=== PATIENT | female | born 1950 | race Two or more races ===

== ENCOUNTER 2016-04-21 10:21 | Emergency (ER) | payer MEDICARE, MEDICAID ==
[~2016-04-21] VITALS: Ht 175.3 cm; Wt 99.8 kg
[2016-04-21] MEDS ORDERED: ONDANSETRON HCL/PF 4 MG/2 ML VIAL ONE (10:49)
[2016-04-21] MEDS ORDERED: IV NS 0.9% 1,000 ML ONE (10:49)
[2016-04-21] MEDS ORDERED: IV SET PRIMARY PUMP SET 1 EA INFUS.SET MC ONE (10:49)
[2016-04-21 10:52] LABS: BASOPHILS % (AUTO) 0.5 % (0.0-2.0); DIFF TOTAL % 100 %; EOSINOPHILS % (AUTO) 0.1 % (0.0-6.0); HEMATOCRIT 45 % (33-45); HEMOGLOBIN 14.4 g/dL (11.5-14.8); LYMPHOCYTES # (AUTO) 0.8 /CMM (0.8-4.8); LYMPHOCYTES % (AUTO) 11.9 % (20.0-44.0); MEAN CORPUSCULAR HEMOGLOBIN 30 PG (26.0-33.0); MEAN CORPUSCULAR HGB CONC 32 g/dl (31.0-36.0); MEAN CORPUSCULAR VOLUME 94 fL (82-100); MONOCYTES # (AUTO) 0.4 /CMM (0.1-1.30); MONOCYTES % (AUTO) 6.1 % (2.0-12.0); NEUTROPHILS # (AUTO) 5.5 /CMM (1.8-8.9); NEUTROPHILS % (AUTO) 81.4 % (43.0-81.0); PLATELET COUNT (AUTO) 207 /CMM (150-450); RED BLOOD CELL COUNT(AUTO) 4.76 MIL/uL (4.0-5.2); WHITE BLOOD COUNT (AUTO) 6.7 K/uL (4.3-11.0)
[2016-04-21] MEDS ORDERED: MELO-264 PO (10:52)
[2016-04-21] MEDS ORDERED: ENAL10TA PO (10:52)
[2016-04-21] MEDS ORDERED: ATOR40TA PO (10:52)
[2016-04-21] MEDS ORDERED: ASPI81TA2 PO (10:52)
[2016-04-21] MEDS ORDERED: IV NS 0.9% 1,000 ML BAG IV ONE (11:00)
[2016-04-21] MEDS ORDERED: ONDANSETRON HCL/PF 4 MG/2 ML VIAL IVP ONE (11:00)
[2016-04-21 11:03] LABS: ANION GAP 13 (5-14); CALCIUM, SERUM 8.6 mg/dL (8.5-10.1); CARBON DIOXIDE 28 mmol/L (21-32); CHLORIDE 102 mmol/L (98-107); CREATININE 1.3 mg/dL (0.6-1.3); GFR 41 mL/min (>60); GLUCOSE 122 mg/dL (74-106); POTASSIUM 3.8 mmol/L (3.5-5.1); SODIUM SERUM 139 mmol/L (136-145); UREA NITROGEN, BLOOD 23 mg/dL (7-18)
[2016-04-21 11:06] LABS: INR 1.02 (0.87-1.13); PROTHROMBIN TIME 10.7 SECS (9.5-12.7)
[2016-04-21 11:11] LABS: TROPONIN I < 0.017 ng/mL (0.00-0.056)
[2016-04-21 11:15] LABS: ALANINE AMINOTRANSFERASE 33 U/L (12-78); ALBUMIN 3.7 g/dL (3.4-5.0); ASPARTATE AMINOTRANSFERASE 44 U/L (15-37); BILIRUBIN,DIRECT 0.1 mg/dL (0.0-0.2); BILIRUBIN,TOTAL 0.5 mg/dL (0.2-1.0); INDIRECT BILIRUBIN 0.4 mg/dL (0.0-1.1); TOTAL PROTEIN, SERUM 7.5 g/dL (6.4-8.2)
[2016-04-21 12:05] VITALS: BP 118/78
== END 2016-04-21 12:20 | disposition home or self-care (01) ==
LOC: ER 10:23
DX: B34.9 Viral infection, unspecified (principal); E86.0 Dehydration; I95.9 Hypotension, unspecified; I10 Essential (primary) hypertension; E78.5 Hyperlipidemia, unspecified
CPT/HCPCS: 36415; 80048; 80076; 84484; 85025; 85730; 87804; 93005; 96361; 96374; 99285; A4606; J2405; J7030; 87400; Z7610

== ENCOUNTER 2022-06-14 18:27 | Inpatient (IN) | payer MEDICARE, OTHER ==
[~2022-06-14] VITALS: Ht 170.2 cm; Wt 91.2 kg
[~2022-06-14 18:27] MED LIST: ASPI-1169 PO; ATOR40TA PO; ENAL10TA39 PO; MELO-107 PO
[2022-06-14] MEDS ORDERED: ACETAMINOPHEN ES 500 MG TABLET ONE (18:53)
[2022-06-14] MEDS ORDERED: ACETAMINOPHEN ES 500 MG TABLET PO ONE (19:00)
--- NOTE | 2022-06-14 19:23 | NUR ---
PT ARRIVED FEBRIL ON 6L NC O2SAT 96% N/V X2 DAYS. WEEK FEELING GENERALIZED PAIN. NKA UKRANIAN SPEAKING.
--- NOTE | 2022-06-14 19:24 | NUR ---
FLU AND COVID SWABS TAKEN AND SENT TO LAB.
[2022-06-14 19:43] LABS: ALANINE AMINOTRANSFERASE 113 U/L (12-78); ALBUMIN 3.3 g/dL (3.4-5.0); ALKALINE PHOSPHATASE 107 U/L (46-116); ASPARTATE AMINOTRANSFERASE 121 U/L (15-37); BILIRUBIN,TOTAL 1.7 mg/dL (0.2-1.0); CALCIUM, SERUM 8.6 mg/dL (8.5-10.1); CARBON DIOXIDE 27 mmol/L (21-32); CHLORIDE 101 mmol/L (98-107); CREATININE 1.6 mg/dL (0.6-1.3); GLUCOSE 146 mg/dL (74-106); SODIUM SERUM 139 mmol/L (136-145); TOTAL PROTEIN, SERUM 7.1 g/dL (6.4-8.2); UREA NITROGEN, BLOOD 33 mg/dL (7-18)
[2022-06-14 19:55] LABS: POTASSIUM 2.8 mmol/L (3.5-5.1)
--- NOTE | 2022-06-14 20:26 | NUR ---
DAUGHTER [phone]
[2022-06-14] MEDS ORDERED: CEFTRIAXONE 1GM BAG (ER ONLY) 1 GM/50 ML PIGGYBACK IV ONE (21:00)
[2022-06-14] MEDS ORDERED: AZITHROMYCIN 500 MG in IV D5W 250 ML IV ONE (21:00)
[2022-06-14] MEDS ORDERED: IV NS 0.9% 1,000 ML IV ONE (21:00)
[2022-06-14] MEDS ORDERED: KETOROLAC TROMETHAMINE INJ 30 MG/ML VIAL IV ONE (21:00)
[2022-06-14] MEDS ORDERED: CEFTRIAXONE 1GM BAG (ER ONLY) 50 ML IV ONE (21:34)
[2022-06-14] MEDS ORDERED: AZITHROMYCIN 500 MG VIAL ONE (21:34)
[2022-06-14] MEDS ORDERED: POTASSIUM CHLORIDE 20 MEQ TAB.PRT.SR PO ONE ×2 (22:13→22:30)
[2022-06-14] MEDS ORDERED: POTASSIUM CL. PREMIX PERIPHER. 200 ML ONE (22:13)
[2022-06-14 22:22] LABS: BASOPHILS % (AUTO) 0.1 % (0.0-2.0); EOSINOPHILS % (AUTO) 0.2 % (0.0-6.0); HEMATOCRIT 41 % (33-45); HEMOGLOBIN 13.6 g/dL (11.5-14.8); LYMPHOCYTES # (AUTO) 0.2 K/uL (0.8-4.8); LYMPHOCYTES % (AUTO) 4.3 % (20.0-44.0); MEAN CORPUSCULAR HGB CONC 33 g/dl (31.0-36.0); MEAN CORPUSCULAR VOLUME 95 fL (82-100); MONOCYTES # (AUTO) 0.1 K/uL (0.1-1.30); MONOCYTES % (AUTO) 1.5 % (2.0-12.0); NEUTROPHILS # (AUTO) 5.2 K/uL (1.8-8.9); NEUTROPHILS % (AUTO) 93.9 % (43.0-81.0); PLATELET COUNT (AUTO) 178 K/uL (150-450); RED BLOOD CELL COUNT(AUTO) 4.33 MIL/uL (4.0-5.2); WHITE BLOOD COUNT (AUTO) 5.5 K/uL (4.3-11.0)
--- NOTE | 2022-06-14 22:27 | NUR ---
EPIC PANEL PAGED
--- NOTE | 2022-06-14 22:29 | NUR ---
ROOM 117-1
--- NOTE | 2022-06-14 22:35 | NUR ---
EPIC PANEL PAGED
[2022-06-14] MEDS ORDERED: POTASSIUM CHLORIDE 20 MEQ TAB.PRT.SR PO PRN (23:00)
[2022-06-14] MEDS ORDERED: ALBUTEROL FS 2.5 MG/0.5 ML VIAL.NEB NEB PRN (23:00)
--- NOTE | 2022-06-14 23:02 | NUR ---
hand off report given to richelle cano
--- NOTE | 2022-06-14 23:10 | NUR ---
RECEIVED REPORT FROM NURSE GIANA.
[2022-06-14] MEDS ORDERED: CEFEPIME 2 GM in IV D5W 100 ML IV ONE (23:30)
[2022-06-15] VITALS (7 sets, daily range): BP systolic 91–125; BP diastolic 45–98
[2022-06-15] MEDS ORDERED: IPRATROPIUM/ALBUTEROL INHALER IH SCH
--- NOTE | 2022-06-15 | NUR ---
ADMISSION NOTES RECEIVED PT FROM ED @ 1624. PT TRANSFERRED FROM [facility] TO [facility]. A/O X 4, UKRANIAN SPEAKING BUT CAN UNDERSTAND AND SPEAK SIMPLE MAORI. ORIENTED TO STAFF AND UNIT. PT ON O2 INHALATION VIA NASAL CANNULA @ 6LPM, 02 SAT. 97%, TOLERATING WELL, BREATHING EVEN AND UNLABORED @ THIS TIME. PT IV ACCESS PRESENT ON RIGHT AC #18G, PATENT, INTACT AND FLUSHES WELL WITH NO S&SX OF INFILTRATION @SITE NOTED. PT IS CONNECTED TO TELE MONITOR WITH CURRENT READING OF SINUS RHYTHM. SKIN IS WARM, DRY AND INTACT. PT BELONGINGS IS ACCOUNTED FOR FILED ON PT CHART. ALL NEEDS ATTENDED. SAFETY MEASURES INITIATED. BED PLACED ON ITS LOWEST AND LOCKED POSITION. SIDE RAILS UP X 2 . BEDSIDE TABLE AND CALL LIGHT IS EASY REACH. BED ALARM IS ON. WILL CONTINUE TO MONITOR PT ACCORDINGLY
[2022-06-15 00:06] LABS: CALCIUM, SERUM 8.1 mg/dL (8.5-10.1); CARBON DIOXIDE 25 mmol/L (21-32); CHLORIDE 105 mmol/L (98-107); CREATININE 1.8 mg/dL (0.6-1.3); GLUCOSE 124 mg/dL (74-106); SODIUM SERUM 141 mmol/L (136-145); UREA NITROGEN, BLOOD 34 mg/dL (7-18)
--- NOTE | 2022-06-15 00:10 | NUR ---
CALLED DAUGHTER, RUTH ANN FOR PT INFORMATION. RUTH ANN WAS ABLE TO PROVIDE INFORMATION ABOUT THE PT. SHE STATED THAT SHE WILL CALL AGAIN IN THE MORNING TO FOLLOW ON THE PT.
[2022-06-15 00:12] LABS: ALANINE AMINOTRANSFERASE 100 U/L (12-78); ALBUMIN 2.9 g/dL (3.4-5.0); ALKALINE PHOSPHATASE 108 U/L (46-116); ASPARTATE AMINOTRANSFERASE 97 U/L (15-37); BILIRUBIN,TOTAL 1.6 mg/dL (0.2-1.0); POTASSIUM 2.7 mmol/L (3.5-5.1); TOTAL PROTEIN, SERUM 6.3 g/dL (6.4-8.2)
[2022-06-15] MEDS: POTASSIUM CL. PREMIX PERIPHER. 50 ML IV SCH ×4 (00:12→02:47)
[2022-06-15] MEDS ORDERED: MORPHINE SULFATE INJ 2 MG/ML DISP.SYRIN IV PRN (00:30)
[2022-06-15] MEDS ORDERED: IV NS 0.9% 500 ML IV ONE (00:30)
[2022-06-15] MEDS ORDERED: CEFEPIME 1 GM VIAL ONE (00:39)
[2022-06-15] MEDS: ONDANSETRON HCL/PF 4 MG/2 ML VIAL IVP PRN ×2 (01:25→07:53)
[2022-06-15] MEDS: ALBUTEROL FS 2.5 MG/0.5 ML VIAL.NEB NEB SCH ×4 (01:30→20:01)
[2022-06-15] MEDS: IPRATROPIUM NEB FS 0.5 MG/2.5 ML AMPUL.NEB IH SCH ×4 (01:30→20:01)
[2022-06-15] MEDS: ENOXAPARIN SODIUM 30 MG/0.3 ML DISP.SYRIN SQ SCH ×2 (01:53→21:49)
--- NOTE | 2022-06-15 02:58 | NUR ---
JEFF NOTES Patient received earlier with 4 bags KCL ordered but Giana handed 3 bags only to JEFF Tomlinson; called ER and spoke to OCHOA Thomson and confirmed 1 bag of KCL was administered by GIANA. Primary JEFF Tomlinson notified Addendum: 06/15/22 at 0304 by CADEN SKINNER RN RT Wick made aware of breathing treatment order
--- NOTE | 2022-06-15 03:36 | NUR ---
Q6 NEB TX NOT GIVEN. ORIGINAL ORDER WAS FOR COMBIVENT AT 0000, BUT WAS DISCONTINUED. Q6 NEB WAS ORDERED, BUT RT WASNT NOTIFIED OF NEW ORDER. ASSESSED PT, ASLEEP AND COMFORTABLE ON 5LNC. NO RESP DISTRESS NOTED. WILL ENDORSE NEW TX PLAN TO DAY SHIFT RT. RN AWARE.
--- NOTE | 2022-06-15 06:48 | NUR ---
RN CLOSING NOTES PT IS ASLEEP & RESTING COMFORTABLY IN BED, RESPONSIVE AND FOLLOWS VERBAL COMMAND. PT ON O2 INHALATION VIA NASAL CANNULA @ 6LPM, 02 SAT. 99%, WITH NO RESPIRATORY DISTRESS @ THIS TIME. PT IV ACCESS PRESENT ON RIGHT AC #18G RUNNING 0.9% NS @20MLS/HR, PATENT, INTACT AND FLUSHES WELL WITH NO S & SX OF INFILTRATION @SITE NOTED. PT IS CONNECTED TO TELE MONITOR WITH CURRENT READING OF SINUS RHYTHM. ADMINISTERED MEDICATIONS ACCORDINGLY PER MD'S ORDER. SAFETY MEASURES INITIATED. BED PLACED ON ITS LOWEST AND LOCKED POSITION. SIDE RAILS UP X 2 . BEDISDE TABLE AND CALL LIGHT IS EASY REACH. BED ALARM IS ON. WILL ENDORSE TO THE NEXT SHIFT FOR CONTINUITY OF CARE.
--- NOTE | 2022-06-15 07:10 | NUR ---
RN CLOSING NOTES RECEIVED PT IN BED IS ASLEEP & RESTING COMFORTABLY , RESPONSIVE AND FOLLOWS VERBAL COMMAND. PT ON O2 INHALATION VIA NASAL CANNULA @ 6LPM, 02 SAT. 99%, WITH NO RESPIRATORY DISTRESS @ THIS TIME. PT IV ACCESS PRESENT ON RIGHT AC #18G RUNNING 0.9% NS @20MLS/HR, PATENT, INTACT AND FLUSHES WELL WITH NO S & SX OF INFILTRATION @SITE NOTED. PT IS CONNECTED TO TELE MONITOR WITH CURRENT READING OF SINUS RHYTHM. SAFETY MEASURES INITIATED. BED PLACED ON ITS LOWEST AND LOCKED POSITION. SIDE RAILS UP X 2 . BEDISDE TABLE AND CALL LIGHT WITHIN REACH. BED ALARM IS ON. WILL CONTINUE TO MONITOR Addendum: 06/15/22 at 1942 by JULIA ZAMORA RN AT 0710 RN OPENING NOTED
[2022-06-15 07:25] LABS: ALANINE AMINOTRANSFERASE 111 U/L (12-78); ALBUMIN 2.6 g/dL (3.4-5.0); ALKALINE PHOSPHATASE 99 U/L (46-116); ASPARTATE AMINOTRANSFERASE 92 U/L (15-37); BILIRUBIN,TOTAL 0.7 mg/dL (0.2-1.0); CALCIUM, SERUM 7.9 mg/dL (8.5-10.1); CARBON DIOXIDE 25 mmol/L (21-32); CHLORIDE 106 mmol/L (98-107); GLUCOSE 147 mg/dL (74-106); MAGNESIUM 1.8 mg/dL (1.8-2.4); PHOSPHORUS 4.9 mg/dL (2.5-4.9); POTASSIUM 4.6 mmol/L (3.5-5.1); SODIUM SERUM 141 mmol/L (136-145); TOTAL PROTEIN, SERUM 6.4 g/dL (6.4-8.2); UREA NITROGEN, BLOOD 39 mg/dL (7-18)
[2022-06-15] MEDS: ATORVASTATIN 40 MG TABLET PO SCH (08:13)
[2022-06-15] MEDS: ENALAPRIL MALEATE (10 MG) 10 MG TABLET PO SCH ×2 (08:14→21:47)
[2022-06-15] MEDS: ASPIRIN 81 MG TAB.CHEW PO SCH (08:14)
--- NOTE | 2022-06-15 09:00 | NUR ---
RN NOTES: NOTIFIED DR OLMSTEAD BP93/51 HELD VASOTEC , NO IV FLUID WITH NO NEW ORDER
[2022-06-15] MEDS ORDERED: HYDR25TA4 PO (10:26)
[2022-06-15] MEDS ORDERED: PANT40TA49 PO (10:26)
[2022-06-15] MEDS ORDERED: ESCI10TA PO (10:26)
[2022-06-15] MEDS ORDERED: LEVO112T7 PO (10:26)
--- NOTE | 2022-06-15 19:40 | NUR ---
RN OPENING NOTE RECEIVED PATIENT IN BED; AWAKE, ALERT AND ORIENTED X 4. GREEK SPEAKING. VERBALLY RESPONSIVE. ON O2 INHALATION @ 6 LPM VIA NASAL CANNULA; TOLERATING WELL. IN NO ACUTE DISTRESS. DENIES ANY PAIN OR DISCOMFORT AT THIS TIME. ON TELE MONITORING WHICH READS SR HR-82 BPM. WITH IV ACCESS ON RIGHT AC 18g AND LEFT AC 22g; BOTH ARE PATENT, INTACT AND SALINE LOCKED. ABLE TO VERBALIZE NEEDS. SAFETY PRECAUTIONS IMPLEMENTED: CALL LIGHT AND TABLE WITHIN REACH, SIDE RAILS UP X 3, BED IN LOWEST LOCKED POSITION. WILL CONTINUE PLAN OF CARE.
--- NOTE | 2022-06-15 19:42 | NUR ---
ASSISTANT PROFESSOR OF PHILOSOPHY CLOSING NOTES PT IS AWAKE COMFORTABLE IN BED, RESPONSIVE AND FOLLOWS VERBAL COMMAND. PT ON O2 INHALATION VIA NASAL CANNULA @ 6LPM, 02 SAT. 99%, WITH NO RESPIRATORY DISTRESS @ THIS TIME. PT IV ACCESS PRESENT ON RIGHT AC #18G, PATENT, INTACT AND FLUSHES WELL WITH NO S & SX OF INFILTRATION @SITE NOTED. PT IS CONNECTED TO TELE MONITOR WITH CURRENT READING OF SINUS RHYTHM. ADMINISTERED MEDICATIONS ACCORDINGLY PER MD'S ORDER. SAFETY MEASURES INITIATED. BED PLACED ON ITS LOWEST AND LOCKED POSITION. SIDE RAILS UP X 2 . BEDSIDE TABLE AND CALL LIGHT IS EASY REACH. BED ALARM IS ON. ENDORSE TO THE DOUBLE END SEWER RN FOR CONTINUITY OF CARE.
[2022-06-15] MEDS: ACETAMINOPHEN 325 MG TABLET PO PRN (21:28)
--- NOTE | 2022-06-15 21:28 | NUR ---
RN NOTE PT COMPLAINED OF HEADACHE AND REQUESTED MEDICATION. TYLENOL 650 MG GIVEN PO ORDERED; TOLERATED WELL. KEPT COMFORTABLE AND INSTRUCTIONAL SERVICES LIBRARIAN BED. WILL CONTINUE TO MONITOR.
[2022-06-16] VITALS (7 sets, daily range): BP systolic 101–125; BP diastolic 50–98
[2022-06-16] MEDS: CEFEPIME 2 GM in IV D5W 100 ML IV SCH (01:10)
[2022-06-16] MEDS: IPRATROPIUM NEB FS 0.5 MG/2.5 ML AMPUL.NEB IH SCH ×4 (01:16→19:58)
[2022-06-16] MEDS: ALBUTEROL FS 2.5 MG/0.5 ML VIAL.NEB NEB SCH ×4 (01:16→19:58)
--- NOTE | 2022-06-16 07:00 | NUR ---
RN CLOSING NOTE PATIENT IN BED; AWAKE, A/O X 4. GREEK SPEAKING. VERBALLY RESPONSIVE. STILL ON O2 INHALATION @ 6 LPM VIA NASAL CANNULA; WELL TOLERATED. IN NO ACUTE DISTRESS. DENIES ANY PAIN OR DISCOMFORT AT THIS TIME. ON TELE MONITORING WHICH READS SR HR-82 BPM. WITH IV ACCESS ON RIGHT AC 18g AND LEFT AC 22g; BOTH ARE PATENT, INTACT AND SALINE LOCKED. ALL NEEDS ATTENDED. SAFETY PRECAUTIONS IN PLACE: CALL LIGHT AND TABLE WITHIN REACH, SIDE RAILS UP X 3, BED IN LOWEST LOCKED POSITION. ENDORSED TO MORNING SHIFT FOR SASHA.
--- NOTE | 2022-06-16 07:15 | NUR ---
RN OPENING NOTE RECEIVED PATIENT ON BED; AWAKE, ALERT AND ORIENTED X 4. VINCENTIAN SPEAKING. VERBALLY RESPONSIVE. ON O2 INHALATION @ 6 LPM VIA NASAL CANNULA; TOLERATING WELL. IN NO ACUTE DISTRESS. DENIES ANY PAIN OR DISCOMFORT AT THIS TIME. ON TELE MONITORING WHICH READS SR HR-82 BPM. WITH IV ACCESS ON RIGHT AC 18g AND LEFT AC 22g; PATENT, INTACT AND SALINE LOCKED. ABLE TO VERBALIZE NEEDS. SAFETY PRECAUTIONS IMPLEMENTED: CALL LIGHT AND TABLE WITHIN REACH, SIDE RAILS UP X 3, BED IN LOWEST LOCKED POSITION. WILL CONTINUE PLAN OF CARE.
[2022-06-16 07:23] LABS: ALANINE AMINOTRANSFERASE 95 U/L (12-78); ALBUMIN 2.6 g/dL (3.4-5.0); ALKALINE PHOSPHATASE 121 U/L (46-116); ASPARTATE AMINOTRANSFERASE 59 U/L (15-37); BILIRUBIN,TOTAL 0.5 mg/dL (0.2-1.0); CALCIUM, SERUM 8.3 mg/dL (8.5-10.1); CARBON DIOXIDE 26 mmol/L (21-32); CHLORIDE 106 mmol/L (98-107); CREATININE 1.4 mg/dL (0.6-1.3); GLUCOSE 100 mg/dL (74-106); MAGNESIUM 2.2 mg/dL (1.8-2.4); PHOSPHORUS 3.1 mg/dL (2.5-4.9); POTASSIUM 4.1 mmol/L (3.5-5.1); SODIUM SERUM 139 mmol/L (136-145); TOTAL PROTEIN, SERUM 6.6 g/dL (6.4-8.2); UREA NITROGEN, BLOOD 37 mg/dL (7-18)
[2022-06-16 07:43] LABS: BASOPHILS % (AUTO) 0.3 % (0.0-2.0); EOSINOPHILS % (AUTO) 0.2 % (0.0-6.0); HEMATOCRIT 38 % (33-45); HEMOGLOBIN 12.3 g/dL (11.5-14.8); LYMPHOCYTES # (AUTO) 0.5 K/uL (0.8-4.8); LYMPHOCYTES % (AUTO) 5.8 % (20.0-44.0); MEAN CORPUSCULAR HGB CONC 33 g/dl (31.0-36.0); MEAN CORPUSCULAR VOLUME 95 fL (82-100); MONOCYTES # (AUTO) 0.4 K/uL (0.1-1.30); MONOCYTES % (AUTO) 4.1 % (2.0-12.0); NEUTROPHILS # (AUTO) 8.3 K/uL (1.8-8.9); NEUTROPHILS % (AUTO) 89.6 % (43.0-81.0); PLATELET COUNT (AUTO) 149 K/uL (150-450); RED BLOOD CELL COUNT(AUTO) 3.93 MIL/uL (4.0-5.2); WHITE BLOOD COUNT (AUTO) 9.2 K/uL (4.3-11.0)
[2022-06-16] MEDS: ATORVASTATIN 40 MG TABLET PO SCH (08:45)
[2022-06-16] MEDS: ASPIRIN 81 MG TAB.CHEW PO SCH (08:45)
--- NOTE | 2022-06-16 08:49 | NUR ---
CRYSTAL FINISHER NOTES Pt has routine Vasotec 10mg due. BP is 102/66. Informed Dr. Wright with orders to hold medication at this time. Pt also complains of severe pain and would like strong pain medication. Dr. Wright notified with ok to give one dose of PRN Morphine.
[2022-06-16] MEDS: ENALAPRIL MALEATE (10 MG) 10 MG TABLET PO SCH ×2 (08:52→21:00)
[2022-06-16] MEDS: ACETAMINOPHEN 325 MG TABLET PO PRN (16:13)
--- NOTE | 2022-06-16 16:26 | NUR ---
BROOM MACHINE OPERATOR NOTES OPERATIONS AND INTELLIGENCE ASSISTANT reported that pts temperature is 102 degrees Fahrenheit. Tylenol 650mg given PO PRN and cooling measure applied. MD Dr. Wright and CN made aware. Will continue to monitor.
--- NOTE | 2022-06-16 16:28 | NUR ---
GUM MACHINE FILLER NOTES Dr. Wright gave new order for blood culture x2. Noted and carried out.
--- NOTE | 2022-06-16 16:45 | NUR ---
DRINK MIXER NOTES Pt desaturating and 02 saturation was 86%. Non rebreather mask put at 10L. Temperature is at 103 degrees Fahrenheit. Vital signs taken and BP 112/75. HR 77, blood sugar @ 101. Rapid Response called. MD called and left message.
[2022-06-16] MEDS ORDERED: VANCOMYCIN 1.25 GM in IV D5W 250 ML IV SCH (17:00)
--- NOTE | 2022-06-16 17:00 | NUR ---
ELECTRON BEAM OPERATOR NOTES Rapid response team at bedside and pt on Non rebreather at 10L, 02 saturation at 94%. Pt more responsive and open eyes when her name is called. made aware with new order for STAT ABG . PT vomited x1 and suctioned.
--- NOTE | 2022-06-16 17:05 | NUR ---
TEARER PRESS CLIPPING NOTES ABG results relayed to Dr. Gomez with orders to leave pt on non rebreather 15L. New order from for STAT EKG. Pt 02 saturation at 94%.
[2022-06-16] MEDS: LEVOFLOXACIN (250MG) 250 MG TABLET PO SCH (17:49)
--- NOTE | 2022-06-16 18:05 | NUR ---
RT Responded to rapid response. Pt found on 10LPM SM with sp02 of 90%. Placed pt on NRB 15 LPM. ABG done- no new orders per MD Peleg. Pt remains on 15 LPM NRB. Will continue to monitor
--- NOTE | 2022-06-16 18:34 | NUR ---
RN CLOSING NOTE PATIENT ON BED; AWAKE, VERBALLY RESPONSIVE, [place]IMB[place], SPEAKING. WITH 100% O2 VIA NON RE BREATHER MASK, O2 SAT 96%. WELL TOLERATED, ON TELE MONITORING WHICH READS SR HR-82 BPM WITH PACS. . WITH IV ACCESS ON RIGHT AC 18g AND LEFT AC 22g; BOTH ARE PATENT, INTACT AND SALINE LOCKED. ALL NEEDS ATTENDED. SAFETY PRECAUTIONS IN PLACE: KEPT CLEAN AND DRY AT ALL TIMES CALL LIGHT AND TABLE WITHIN REACH, SIDE RAILS UP X 3, BED IN LOWEST LOCKED POSITION. CURRENT TEMP 100.F AXILLARY. ENDORSED TO INCOMING SHIFT FOR CONTINUITY OF CARE. .
--- NOTE | 2022-06-16 18:57 | NUR ---
PT HAD A LARGE BM, CURRENT TEMP 98.9 VIA AXILLARY.
--- NOTE | 2022-06-16 19:30 | NUR ---
APPRAISER AUDITOR OPENING NOTE RECEIVED PATIENT ON BED; AWAKE, ALERT AND ORIENTED X 2. AUSTRALIAN SPEAKING. DAUGHTER AT BEDSIDE. ON O2 INHALATION @ 15 LPM VIA NRM; TOLERATING WELL. IN NO ACUTE DISTRESS. DENIES ANY PAIN OR DISCOMFORT AT THIS TIME. ON TELE MONITORING WHICH READS SR HR-82 BPM. WITH IV ACCESS ON RIGHT AC 18g NO IVF RUNNING AT THIS TIME; PATENT, INTACT AND SALINE LOCKED. ABLE TO VERBALIZE NEEDS. SAFETY PRECAUTIONS IMPLEMENTED: CALL LIGHT AND TABLE WITHIN REACH, SIDE RAILS UP X 3, BED IN LOWEST LOCKED POSITION. WILL CONTINUE TO MONITOR THROUGHOUT THE SHIFT.
[2022-06-16] MEDS: ENOXAPARIN SODIUM 30 MG/0.3 ML DISP.SYRIN SQ SCH (21:26)
[2022-06-17] VITALS: BP 105/61
[2022-06-17] MEDS: CEFEPIME 2 GM in IV D5W 100 ML IV SCH (01:14)
[2022-06-17] MEDS: ALBUTEROL FS 2.5 MG/0.5 ML VIAL.NEB NEB SCH ×4 (02:07→20:05)
[2022-06-17] MEDS: IPRATROPIUM NEB FS 0.5 MG/2.5 ML AMPUL.NEB IH SCH ×4 (02:07→20:05)
--- NOTE | 2022-06-17 02:10 | NUR ---
RT NOTE O2 TITRATED TO 12L SIMPLE MASK. RASHMI WELL. 96% SAT. RN AWARE.
[2022-06-17 04:00] VITALS: BP 101/59
--- NOTE | 2022-06-17 07:05 | NUR ---
GARDEN CONSULTANT CLOSING NOTE PATIENT REMAINS ON BED; AWAKE, ALERT AND ORIENTED X 3-4. CHADIAN SPEAKING. ON O2 INHALATION @ 1O LPM VIA SIMPLE MASK; TOLERATING WELL. IN NO ACUTE DISTRESS. DENIES ANY PAIN OR DISCOMFORT AT THIS TIME. ON TELE MONITORING WHICH READS SB-SR HR-50'S. WITH IV ACCESS ON RIGHT AC 18g NO IVF RUNNING AT THIS TIME; PATENT, INTACT AND SALINE LOCKED. ABLE TO VERBALIZE NEEDS. ALL DUE MEDS GIVEN, KEPT DRY AND CLEAN, SAFETY PRECAUTIONS IMPLEMENTED: CALL LIGHT AND TABLE WITHIN REACH, SIDE RAILS UP X 3, BED IN LOWEST LOCKED POSITION. WILL ENDORSE TO AM SHIFT NURSE FOR CONTINUITY OF CARE.
--- NOTE | 2022-06-17 07:14 | NUR ---
COIL WINDING SUPERVISOR NOTES Received pt awake in bed AOX3 Citizen Of [place] speaking. Pt is currently on 10L simple mask and tolerating it well with 02 saturation at 99%. IV access on RAC 18G SL patent and intact. HOB elevated to pts comfort. Siderails up at all times x2. Call light within reach. Will continue to monitor.
[2022-06-17 07:21] LABS: CALCIUM, SERUM 8.5 mg/dL (8.5-10.1); CREATININE 1.2 mg/dL (0.6-1.3); POTASSIUM 4.3 mmol/L (3.5-5.1)
[2022-06-17 08:00] VITALS: BP 109/76
--- NOTE | 2022-06-17 08:23 | NUR ---
BIOLOGICAL AIDE NOTES Lab called to relay critical lab value of 114.89 Procalcitonin. NURSE INTERN Ted made aware.
[2022-06-17 08:41] LABS: BILIRUBIN,URINE 1+ (NEGATIVE); COLOR,URINE DARK YELLOW (YELLOW); LEUKOCYTE ESTERASE ,URINE NEGATIVE (NEGATIVE); NITRITE, URINE NEGATIVE (NEGATIVE); PROTEIN,URINE 2+ mg/dl (NEGATIVE); UGLUCOSE NEGATIVE (NEGATIVE)
[2022-06-17] MEDS: ASPIRIN 81 MG TAB.CHEW PO SCH (08:42)
[2022-06-17] MEDS: ATORVASTATIN 40 MG TABLET PO SCH (08:42)
[2022-06-17] MEDS: ENALAPRIL MALEATE (10 MG) 10 MG TABLET PO SCH ×2 (09:00→20:59)
[2022-06-17 09:07] LABS: BACTERIA,URINE Moderate /HPF (None Seen); SQUAMOUS EPITHELIAL CELL,UR Many /HPF (None Seen)
[2022-06-17 12:00] VITALS: BP 107/69
[2022-06-17 16:00] VITALS: BP 115/67
[2022-06-17] MEDS: LEVOFLOXACIN (250MG) 250 MG TABLET PO SCH (16:08)
[2022-06-17] MEDS ORDERED: VANCOMYCIN 1 GM in IV D5W 250 ML IV SCH (17:00)
--- NOTE | 2022-06-17 18:24 | NUR ---
ENVIRONMENTAL SERVICES PROJECT MANAGER CLOSING NOTES All due meds and tx given as ordered. Pt tolerated everything well. All needs attended to. Pt is currently on 3L NC and tolerating it well. IV access on RAC 18G patent and intact. Call light within reach. Will continue current plan of care.
--- NOTE | 2022-06-17 19:35 | NUR ---
MACHINE OPERATORS OPENING NOTES RECEIVED PATIENT IN BED SLEEPING BUT EASILY AWAKEN WHEN CALLED BY NAME. A/O X2-3. ABLE TO MAKE NEEDS KNOWN. IV ACCESS ON RIGHT AC G#18 IV ACCESS NOTED TO BE PATENT AND INTACT SALINE LOCK. PATIENT ON NC 3LPM TOLERATING WELL, NO SOB, NOT IN DISTRESS. PATIENT ON RECREATION FACILITY MANAGER WITH SINUS RHYTHM 67BPM. PATIENT IS COMFORTABLE. NO COMPLAINS OF PAIN AT THE MOMENT. SAFETY MEASURE IN PLACED; BED LOCKED AND IN LOWEST POSITION, HOB ELEVATED, CALL LIGHT AND BED SIDE TABLE WITHIN PATIENTS REACH.
[2022-06-17 20:00] VITALS: BP 115/69
[2022-06-17] MEDS: ENOXAPARIN SODIUM 30 MG/0.3 ML DISP.SYRIN SQ SCH (21:01)
[2022-06-18] VITALS: BP 120/71
[2022-06-18] MEDS: CEFEPIME 2 GM in IV D5W 100 ML IV SCH ×2 (00:28→14:09)
[2022-06-18] MEDS: IPRATROPIUM NEB FS 0.5 MG/2.5 ML AMPUL.NEB IH SCH ×4 (01:52→19:48)
[2022-06-18] MEDS: ALBUTEROL FS 2.5 MG/0.5 ML VIAL.NEB NEB SCH ×4 (01:53→19:48)
[2022-06-18 04:00] VITALS: BP 123/70
--- NOTE | 2022-06-18 04:35 | NUR ---
RN NOTES LAB CALLED BLOOD CULTURE RESULT AEROBIC GRAM NEGATIVE RODS. METAL SHEET ROLLER OPERATOR DOCTOR LASHANDA IS INFORMED NO FURTHER ORDER AT THIS TIME.
--- NOTE | 2022-06-18 06:38 | NUR ---
COLLIERY CLERK CLOSING NOTES PATIENT IN BED SLEEPING BUT EASILY AWAKEN WHEN CALLED BY NAME. A/O X4. ABLE TO MAKE NEEDS KNOWN. IV ACCESS ON RIGHT AC G#18 IV ACCESS NOTED TO BE PATENT AND INTACT SALINE LOCK. PATIENT ON NC 3LPM TOLERATING WELL, NO SOB, NOT IN DISTRESS. PATIENT ON TIME CLERK WITH SINUS RHYTHM 67BPM. PATIENT IS COMFORTABLE. NO COMPLAINS OF PAIN AT THE MOMENT. ALL DUE MEDICATIONS ARE GIVEN. ALL NEEDS ARE MET. MADE SURE PATIENT IS COMFORTABLE CLEAN AND DRY. PATIENT IS CONNECTED TO A PUREWICK NOTED TO BE DRAINING WELL IN THE SUCTION MACHINE. SAFETY MEASURE IN PLACED; BED LOCKED AND IN LOWEST POSITION, HOB ELEVATED, CALL LIGHT AND BED SIDE TABLE WITHIN PATIENTS REACH. WILL ENDORSE TO NEXT SHIFT NURSE FOR CONTINUITY OF CARE.
--- NOTE | 2022-06-18 06:45 | NUR ---
Report communicate to on communicate to on coming nurse. IV site is patent, dry and no drainage or redness observed at the site. Patient is breathing just fine on room air. she is resting in bed now. will continue to monitor patient for safety.
[2022-06-18 08:32] LABS: CALCIUM, SERUM 8.9 mg/dL (8.5-10.1); CREATININE 1.1 mg/dL (0.6-1.3); POTASSIUM 4.2 mmol/L (3.5-5.1)
[2022-06-18] MEDS: ATORVASTATIN 40 MG TABLET PO SCH (10:24)
[2022-06-18] MEDS: ENALAPRIL MALEATE (10 MG) 10 MG TABLET PO SCH ×2 (10:25→22:02)
[2022-06-18] MEDS: ASPIRIN 81 MG TAB.CHEW PO SCH (10:25)
[2022-06-18] MEDS ORDERED: LEVOTHYROXINE SODIUM 50 MCG TABLET PO SCH (10:30)
[2022-06-18 14:16] VITALS: BP 130/70
[2022-06-18 16:00] VITALS: BP 130/69
[2022-06-18] MEDS: LEVOFLOXACIN (250MG) 250 MG TABLET PO SCH (18:09)
--- NOTE | 2022-06-18 19:30 | NUR ---
MASTER MOTORCYCLE TECHNICIAN OPENING NOTES RECEIVED PT IN BED RESTING, EASILY AROUSABLE. A/O X4. ABLE TO MAKE NEEDS KNOWN. ON O2 3L VIA NC WITH NO S/S OF SOB OR DISTRESS. ON TELE MONITOR READING SR WITH PAC'S, HR 70. IV ACCESS RAC #18G, PATENT, INTACT, SL. NO COMPLAINS OF PAIN AT THE MOMENT. PATIENT IS CONNECTED TO A PUREWICK NOTED TO BE DRAINING WELL IN THE SUCTION MACHINE. SAFETY MEASURES IN PLACE: BED LOCKED AND IN LOWEST POSITION, HOB ELEVATED, CALL LIGHT AND BED SIDE TABLE WITHIN PATIENTS REACH, BED ALARM, SIDE RAILS UP X3. WILL CONTINUE TO MONITOR AND ASSIST.
[2022-06-18 20:00] VITALS: BP 132/78
[2022-06-18] MEDS: ENOXAPARIN SODIUM 40 MG/0.4 ML DISP.SYRIN SQ SCH (21:55)
[2022-06-19] VITALS: BP 125/74
[2022-06-19] MEDS: CEFEPIME 2 GM in IV D5W 100 ML IV SCH ×2 (01:05→13:24)
[2022-06-19] MEDS: ALBUTEROL FS 2.5 MG/0.5 ML VIAL.NEB NEB SCH ×4 (01:30→19:54)
[2022-06-19] MEDS: IPRATROPIUM NEB FS 0.5 MG/2.5 ML AMPUL.NEB IH SCH ×4 (01:30→19:54)
[2022-06-19 04:00] VITALS: BP 118/64
--- NOTE | 2022-06-19 06:48 | NUR ---
WATER ENGINEER CLOSING NOTES PT IN BED RESTING, EASILY AROUSABLE. A/O X4, ABLE TO MAKE NEEDS KNOWN, EQUATORIAL GUINEAN SPEAKING. STABLE ON O2 3L VIA NC WITH NO S/S OF SOB OR DISTRESS. ON TELE MONITOR READING SR WITH PAC'S, HR 65. IV ACCESS RAC #18G, PATENT, INTACT, SL. NO COMPLAINS OF PAIN AT THE MOMENT. PATIENT IS CONNECTED TO A PUREWICK NOTED TO BE DRAINING WELL IN THE SUCTION MACHINE, DRAINED TOTAL OF 200 ML GABBY URINE DURING SHIFT. ALL CARE PROVIDED AND MEDS TOLERATED WELL. SAFETY MEASURES MAINTAINED: BED LOCKED AND IN LOWEST POSITION, HOB ELEVATED, CALL LIGHT AND BED SIDE TABLE WITHIN PATIENTS REACH, BED ALARM, SIDE RAILS UP X3. WILL ENDORSE SASHA TO DAY SHIFT NURSE.
--- NOTE | 2022-06-19 07:34 | NUR ---
STEP DOWN NURSE OPENING NOTES RECEIVED PT IN BED ASLEEP, EASILY AROUSABLE. A/O X4. CITIZEN OF [place] SPEAKING. ABLE TO MAKE NEEDS KNOWN. ON O2 3L VIA NC WITH NO S/S OF SOB OR DISTRESS AT THIS TIME. ON TELE MONITOR READING SR. IV ACCESS RAC #18G, PATENT, INTACT, SL. NO COMPLAINTS OF PAIN AT THIS TIME. PATIENT IS CONNECTED TO A PUREWICK NOTED TO BE DRAINING WELL. ALL SAFETY MEASURES IN PLACE: BED LOCKED AND IN LOWEST POSITION, HOB ELEVATED, CALL LIGHT AND BED SIDE TABLE WITHIN PATIENTS REACH, BED ALARM, SIDE RAILS UP X2
[2022-06-19 07:45] LABS: CALCIUM, SERUM 8.9 mg/dL (8.5-10.1); CARBON DIOXIDE 28 mmol/L (21-32); CHLORIDE 107 mmol/L (98-107); CREATININE 1.1 mg/dL (0.6-1.3); GLUCOSE 102 mg/dL (74-106); POTASSIUM 4.4 mmol/L (3.5-5.1); SODIUM SERUM 142 mmol/L (136-145); UREA NITROGEN, BLOOD 22 mg/dL (7-18)
[2022-06-19 08:00] VITALS: BP 118/72
[2022-06-19] MEDS: ASPIRIN 81 MG TAB.CHEW PO SCH (08:35)
[2022-06-19] MEDS: LEVOTHYROXINE SODIUM 125 MCG TABLET PO SCH (08:35)
[2022-06-19] MEDS: ENALAPRIL MALEATE (10 MG) 10 MG TABLET PO SCH ×2 (08:35→21:00)
[2022-06-19] MEDS: ATORVASTATIN 40 MG TABLET PO SCH (08:35)
[2022-06-19] MEDS ORDERED: LEVOTHYROXINE SODIUM 50 MCG TABLET PO SCH (09:00)
[2022-06-19 12:00] VITALS: BP 141/76
[2022-06-19 16:00] VITALS: BP 138/79
[2022-06-19] MEDS: LEVOFLOXACIN (250MG) 250 MG TABLET PO SCH (16:15)
--- NOTE | 2022-06-19 19:05 | NUR ---
RN NOTES: RECEIVED LYING ON BED, A/OX 4. SINGAPOREAN SPEAKING, SHE WAS TALKING TO HER FAMILY OVER THE PHONE, KEPT ON SEMI FOWLERS POSITION, WITH O2 INHALATION AT 3L/MIN VIA NC SPO2-95%, ON TELE MONITOR-SR WITH PAC's -68, PN ARMAND, USES BRIEF, STARTED ON PT THIS MORNING BUT PER ENDORSEMENT SHE HAS PERIODS OF DIZZINESS WITH STANDBY ASSIST, IV CANNULA g318 SALINE LOCKED, NO IVF, ASPIRATION PRECAUTION OBSERVED,UNDERSTAND LITTLE ROMANSH ORIENTED TO UNIT AND STAFF.
--- NOTE | 2022-06-19 19:07 | NUR ---
COMMERCIAL ILLUSTRATOR CLOSING NOTES PT IN BED A/O X4. BAHAMIAN SPEAKING. ABLE TO MAKE NEEDS KNOWN. ON O2 3L VIA SAUTRATING AT 97%. NO S/S OF PAIN OR DISCOMFORT NOTED AT THIS TIME. ON TELE MONITOR READING SR.96 IV ACCESS RAC #18G, PATENT, INTACT, SL. PATIENT IS CONNECTED TO A PUREWICK NOTED TO BE DRAINING WELL YELLOW COLOR DRAINING TO GRAVITY. ALL SAFETY MEASURES IN PLACE: BED LOCKED AND IN LOWEST POSITION, HOB ELEVATED, CALL LIGHT AND BED SIDE TABLE WITHIN PATIENTS REACH, BED ALARM, SIDE RAILS UP X2.ENDORSED TO OPEN CUT EXAMINER RN FOR CONUTITY OF CARE
[2022-06-19 20:00] VITALS: BP 133/69
[2022-06-19] MEDS: ENOXAPARIN SODIUM 40 MG/0.4 ML DISP.SYRIN SQ SCH (21:04)
--- NOTE | 2022-06-19 21:15 | NUR ---
RN NOTES: REPOSITIONED, DUE MEDS GIVEN, GIVEN WARM BLANKET, KEPT CALL LIGHT WITHIN EASY REACH.
--- NOTE | 2022-06-19 23:14 | NUR ---
RN NOTES: HER PUREWICK WAS OUT, COILED SOME OF HER LINNENS, SPONGE BATH GIVEN, PUREWICK CHANGE, SHE WAS VERY THANKFUL TO THE STAFF. SAFETY PRECAUTION OBSERVED. KEPT CALL LIGHT WITHIN EASY REACH, 3 RAILS UP.
[2022-06-20] VITALS (7 sets, daily range): BP systolic 115–144; BP diastolic 70–91
[2022-06-20] MEDS: CEFEPIME 2 GM in IV D5W 100 ML IV SCH ×2 (00:15→12:09)
--- NOTE | 2022-06-20 01:18 | NUR ---
RN NOTES: AROUND 0020 LEAKING NOTED ON THE IV SITE, EXPLAINED TO PATIENT WE NEED TO RESITE AGAIN, SHE AGREED, IV CANNULA INSERTED ON THE RAC G#22, 1 ATTEMPT MADE WITH GOOD BACKFLOW, IV/ATB GIVEN. PATENT SITE. -DAUGHTER CALLED AWHILE AGO GIVEN UPDATE.
[2022-06-20] MEDS: IPRATROPIUM NEB FS 0.5 MG/2.5 ML AMPUL.NEB IH SCH ×4 (01:38→19:30)
[2022-06-20] MEDS: ALBUTEROL FS 2.5 MG/0.5 ML VIAL.NEB NEB SCH ×4 (01:38→19:30)
--- NOTE | 2022-06-20 06:32 | NUR ---
RN NOTES: ABLE TO SLEEP AND REST, NO PAIN OR DISOCMOFRT, ON TELE MONITOR, SINUS RHYTHM=62, ON O2 AT 1-2L/MIN VIA NC, SPO2-94%, NO SOB, NO COUGHING, ON ROUTINE NEBULIZATION, FOR BMP IN THE MORNING, URINE OUTPUT 600, NO BM , LATEST WEIGHT 210, ENDORSED FOR CONTINUITY OF CARE.
[2022-06-20 07:48] LABS: CALCIUM, SERUM 9.2 mg/dL (8.5-10.1); CARBON DIOXIDE 26 mmol/L (21-32); CHLORIDE 106 mmol/L (98-107); GLUCOSE 107 mg/dL (74-106); POTASSIUM 4.2 mmol/L (3.5-5.1); SODIUM SERUM 141 mmol/L (136-145); UREA NITROGEN, BLOOD 21 mg/dL (7-18)
[2022-06-20] MEDS: LEVOTHYROXINE SODIUM 125 MCG TABLET PO SCH (07:56)
[2022-06-20] MEDS: ASPIRIN 81 MG TAB.CHEW PO SCH (08:08)
[2022-06-20] MEDS: ENSURE ENLIVE 237 ML LIQUID (VANILLA) PO SCH (08:09)
[2022-06-20] MEDS: ATORVASTATIN 40 MG TABLET PO SCH (08:21)
[2022-06-20] MEDS: ENALAPRIL MALEATE (10 MG) 10 MG TABLET PO SCH ×2 (08:22→21:46)
--- NOTE | 2022-06-20 10:15 | NUR ---
DAUGHTER AND CAME AND VERY UPSET AND WANTED TO SPEAK TO THE DOCTOR WHICH IS DR CAMARA, CHARGE NURSE TRISHA CAME AND REASSESSED PATIENT'S STATUS, BP-138/94, HR-82, T-98.1, BS-101, SPO2-93 ON 2LMIN, AT 10;26 CALLED [facility] AND SPOKE TO DR ROJO AND REPORTED TO HIM, CAME AND SPOKE TO THE FAMILY MEMBERS.
[2022-06-20] MEDS ORDERED: FUROSEMIDE 20 MG/2 ML VIAL IV SCH (11:30)
[2022-06-20 11:44] LABS: BASOPHILS # (AUTO) 0.1 K/uL (0.0-0.2); BASOPHILS % (AUTO) 0.8 % (0.0-2.0); EOSINOPHILS % (AUTO) 0.8 % (0.0-6.0); HEMATOCRIT 40 % (33-45); HEMOGLOBIN 13.1 g/dL (11.5-14.8); LYMPHOCYTES # (AUTO) 1.2 K/uL (0.8-4.8); LYMPHOCYTES % (AUTO) 17.4 % (20.0-44.0); MEAN CORPUSCULAR HGB CONC 33 g/dl (31.0-36.0); MEAN CORPUSCULAR VOLUME 94 fL (82-100); MONOCYTES # (AUTO) 0.8 K/uL (0.1-1.30); MONOCYTES % (AUTO) 11.5 % (2.0-12.0); NEUTROPHILS # (AUTO) 4.9 K/uL (1.8-8.9); NEUTROPHILS % (AUTO) 69.5 % (43.0-81.0); PLATELET COUNT (AUTO) 245 K/uL (150-450); RED BLOOD CELL COUNT(AUTO) 4.28 MIL/uL (4.0-5.2); WHITE BLOOD COUNT (AUTO) 7.1 K/uL (4.3-11.0)
[2022-06-20 12:00] LABS: CALCIUM, SERUM 9.1 mg/dL (8.5-10.1); POTASSIUM 4.2 mmol/L (3.5-5.1)
[2022-06-20 12:06] LABS: ALBUMIN 2.6 g/dL (3.4-5.0); BILIRUBIN,TOTAL 0.8 mg/dL (0.2-1.0); TOTAL PROTEIN, SERUM 7.2 g/dL (6.4-8.2)
[2022-06-20 14:07] LABS: *WEST NILE VIRUS, IgG, SERUM Negative (Negative); *WEST NILE VIRUS, IgM, SERUM Negative (Negative)
--- NOTE | 2022-06-20 15:00 | NUR ---
AT THIS TIME PATIENT IS SITTING IN BED RESPONSIVE, TALKING ON THE PHONE AND COMBING HER HAIR. NO SIGNS OF IN DISTRESS, UNLABORED BREATHING ON ROOM AIR.
[2022-06-20] MEDS: LEVOFLOXACIN (250MG) 250 MG TABLET PO SCH (16:03)
--- NOTE | 2022-06-20 17:52 | NUR ---
MIDLINE INSERTED, DISCONTINUE RIGHT AC LINE.
--- NOTE | 2022-06-20 18:44 | NUR ---
PATIENT IS AWAKE RESTING IN BED COMFORTABLY, ORIENTEDX3, GIBRALTARIAN SPEAKING ONLY, NO SIGNS OF IN DISTRESS, UNLABORED BREATHING ON ROOM AIR, SAFETY MEASURES APPLIED, BED IN LOW POSITION LOCKED, SIDE RAILS UPX3, CALL LIGHT WITHIN REACH.
--- NOTE | 2022-06-20 19:50 | NUR ---
WALLPAPER SCRAPER OPENING NOTES Received patient in bed awake, alert and oriented. A/O x 3-4, Scottish speaking but speaks simple Hungarian. No s/s of pain noted at this time. On room air, breathing even and unlabored, no distress or sob noted at this time. Patient has midline BROOKE #22G, intact, patent and flushing well. Patient on bleacher sulfite pulp of SR, no cardiac distress noted. Patient has pure wick in place draining yellow urine. Safety measures in place with bed on lowest and locked position. Side rails up x 3. Call light and tray within easy reach. Will continue with the plan of care and will carry out active MD orders.
[2022-06-20] MEDS: ENOXAPARIN SODIUM 40 MG/0.4 ML DISP.SYRIN SQ SCH (21:56)
[2022-06-21] VITALS: BP 132/76
[2022-06-21] MEDS: ALBUTEROL FS 2.5 MG/0.5 ML VIAL.NEB NEB SCH ×4 (01:08→20:25)
[2022-06-21] MEDS: IPRATROPIUM NEB FS 0.5 MG/2.5 ML AMPUL.NEB IH SCH ×4 (01:08→20:25)
[2022-06-21] MEDS: CEFEPIME 2 GM in IV D5W 100 ML IV SCH ×2 (01:25→13:20)
[2022-06-21 04:00] VITALS: BP 127/73
--- NOTE | 2022-06-21 07:00 | NUR ---
RN NOTE RECEIVED PATIENT IN BED RESTING ALERT ORIENTED X3-4 VERBALLY RESPONSIVE,URUGUAYAN SPEAKING,IV SITE IS ON LEFT UPPER ARM MIDLINE INTACT PATENT,INCONTINENT BLADDER ON PUREWICK, SAFETY MEASURE IMPLEMENT BED IN LOW POSITON AND LOCKED,CALL LIGHT WITHIN REACH BED IN LOW POSITON AND LOCKED,HEAD OF THE BED ELEVATED CONTINUE TO MONITOR.
--- NOTE | 2022-06-21 07:05 | NUR ---
CROP DUSTER CLOSING NOTES Patient in sleeping in bed. Easily be awaken by calling name. A/O x 3-4, Moldovan speaking but speaks simple Lao. No s/s of pain noted at this time. On room air, breathing even and unlabored, no distress or sob noted at this time. Patient has midline BROOKE #22G, intact, patent and flushing well. Patient on in processing instructor of SR with PAC @ 64, no cardiac distress noted. Patient has pure wick in place drained 400cc of yellow colored urine. Safety measures maintained with bed on lowest and locked position. Side rails up x 3. Call light and tray within easy reach. Will endorse to the next shift.
--- NOTE | 2022-06-21 07:06 | NUR ---
RN NOTE PATIENT IS ON ROOM AIR O2:94% CONTINUE TO MONITOR.
[2022-06-21] MEDS: LEVOTHYROXINE SODIUM 125 MCG TABLET PO SCH (07:38)
[2022-06-21 08:00] VITALS: BP 134/84
[2022-06-21] MEDS: ASPIRIN 81 MG TAB.CHEW PO SCH (08:13)
[2022-06-21] MEDS: ATORVASTATIN 40 MG TABLET PO SCH (08:13)
[2022-06-21] MEDS: ENSURE ENLIVE 237 ML LIQUID (VANILLA) PO SCH (08:15)
[2022-06-21 08:31] LABS: CALCIUM, SERUM 9.2 mg/dL (8.5-10.1); POTASSIUM 3.9 mmol/L (3.5-5.1)
[2022-06-21] MEDS: ENALAPRIL MALEATE (10 MG) 10 MG TABLET PO SCH ×2 (08:32→21:06)
[2022-06-21 12:00] VITALS: BP 116/54
--- NOTE | 2022-06-21 13:29 | NUR ---
ALTAGRACIA MARTINES NOTIFIED REGARDING DC THAT MD WANTS ATB GIVEN EARLY TONITE AT 10 PM,PER CM NOT POSSIBLE SINCE ATB WILL BE DELIVERED IN AM.ALTAGRACIA WILL RENOTIFY DR. CAMARA.PENDING DC IN AM R/T ATB ARRANGEMENT PER ALTAGRACIA.
[2022-06-21 16:00] VITALS: BP 116/59
[2022-06-21] MEDS: LEVOFLOXACIN (250MG) 250 MG TABLET PO SCH (16:50)
--- NOTE | 2022-06-21 18:17 | NUR ---
RN NOTE PATIENT REMAINS ALERT ORIENTED X4 ON ROOM AIR O2:94% NO SOB NOT ACUTE DISTRESS NOTED,ALL DUE MEDS GIVEN MD ORDERED,KEPT CLEAN AND DRY ALL THE TIME,ALL NEEDS MET WILL ENDORSE NEXT COMING SHIFT FOR CONTINUATION OF CARE.
--- NOTE | 2022-06-21 18:28 | NUR ---
RN NOTE PATIENT WANTS KEEP O2,EXPLAINED SHE DOESNT NEED OXYGEN SHE INSISTED TO BACK.
--- NOTE | 2022-06-21 19:15 | NUR ---
IRISH MOSS OPERATOR OPENING NOTE PT IS SITTING IN BED AND WATCHING TV. SHE IS GABONESE SPEAKING; UNDERSTANDS SOME PORTUGUESE. PT IS ON 2 LPM OF OXYGEN VIA NC, TOLERATED WELL. NO S/S OF DISTRESS. PT IS ALERT AND ORIENTED, AO X 4. IV ACCESS IS AT HER L UA, ML, #18G, SL. FLUSHED WELL WITH 10 CC OF NS. PT IS ABLE TO VERBALIZE HER NEEDS. PT IS ON EXTERNAL DIE CASTER, ON THE MONITOR, HER HEART RHYTHM IS SR WITH HR AT 90S. SAFETY MEASURES ARE IN PLACED: BED IN LOWEST AND LOCKED POSITION; SIDE RAILS UP X 2; CALL LIGHT AND TABLE ARE WITHIN REACH. WILL CONTINUE MONITOR THE PT AND PROVIDE THE CARE PT NEEDS.
[2022-06-21 20:00] VITALS: BP 117/58
[2022-06-21] MEDS: ENOXAPARIN SODIUM 40 MG/0.4 ML DISP.SYRIN SQ SCH (21:07)
[2022-06-22] VITALS: BP 103/68
[2022-06-22] MEDS: CEFEPIME 2 GM in IV D5W 100 ML IV SCH (00:33)
[2022-06-22] MEDS: ALBUTEROL FS 2.5 MG/0.5 ML VIAL.NEB NEB SCH ×2 (01:30→08:29)
[2022-06-22] MEDS: IPRATROPIUM NEB FS 0.5 MG/2.5 ML AMPUL.NEB IH SCH ×2 (01:30→08:29)
[2022-06-22 04:00] VITALS: BP 113/77
[2022-06-22 06:08] LABS: CALCIUM, SERUM 8.7 mg/dL (8.5-10.1); CARBON DIOXIDE 25 mmol/L (21-32); CHLORIDE 108 mmol/L (98-107); CREATININE 1.2 mg/dL (0.6-1.3); GLUCOSE 108 mg/dL (74-106); POTASSIUM 3.8 mmol/L (3.5-5.1); SODIUM SERUM 141 mmol/L (136-145); UREA NITROGEN, BLOOD 27 mg/dL (7-18)
--- NOTE | 2022-06-22 07:00 | NUR ---
HUMAN RESOURCES ASSISTANT CLOSING NOTE PT IS SLEEPING IN BED, EASILY BEING AROUSED. PT IS ON 2 LPM OF OXYGEN VIA NC, TOLERATED WELL. NO S/S OF DISTRESS OR SOB. PT IS ALERT AND ORIENTED, AO X 4. IV ACCESS IS AT HER L UA, ML, #18G, SL. FLUSHED WELL WITH 10 CC OF NS. PT IS ABLE TO VERBALIZE HER NEEDS. PT IS ON EXTERNAL LANDSCAPE MAINTENANCE INTERNSHIP, ON THE MONITOR, HER HEART RHYTHM IS SR WITH HR AT 90S. SAFETY MEASURES ARE IN PLACED: BED IN LOWEST AND LOCKED POSITION; SIDE RAILS UP X 2; CALL LIGHT AND TABLE ARE WITHIN REACH. WILL ENDORSE NEXT SHIFT NURSE FOR CONTINUING PT CARE
--- NOTE | 2022-06-22 07:20 | NUR ---
RN OPENING NOTE RECEIVED PATIENT IN BED, AWAKE, A/O X4, VERBALLY RESPONSIVE AND ABLE TO MAKE NEEDS KNOWN. NO SIGNS OF ACUTE DISTRESS NOTED. ON O2 INHALATION @2LPM VIA N/C, NO SOB NOTED, BREATHING EVEN AND UNLABORED. WITH MIDLINE ON LEFT UPPER ARM #18G, INTACT AND PATENT, SALINE LOCKED. ON CARDIAC MONITORING SHOWING SINUS RHYTHM, HR @98. NO C/O PAIN OR DISCOMFORT AT THIS TIME. SAFETY MEASURE IN PLACE. BED IN LOW AND LOCKED POSITION, SIDE RAILS UP X2, CALL LIGHT PLACED WITHIN EASY REACH. WILL CONTINUE TO MONITOR PATIENT.
[2022-06-22 08:00] VITALS: BP 121/69
[2022-06-22] MEDS: LEVOTHYROXINE SODIUM 125 MCG TABLET PO SCH (08:52)
[2022-06-22] MEDS: ASPIRIN 81 MG TAB.CHEW PO SCH (08:52)
[2022-06-22] MEDS: ATORVASTATIN 40 MG TABLET PO SCH (08:52)
[2022-06-22] MEDS: ENALAPRIL MALEATE (10 MG) 10 MG TABLET PO SCH (08:53)
[2022-06-22] MEDS: ENSURE ENLIVE 237 ML LIQUID (VANILLA) PO SCH (08:53)
[2022-06-22 12:00] VITALS: BP 128/66
--- NOTE | 2022-06-22 12:16 | NUR ---
SHIPPING & RECEIVING LEAD NOTE PATIENT DISCHARGED HOME IN STABLE CONDITION. ON ROOM AIR, SPO2 92-94%, PER CM OK TO D/C HOME PER MD. INCENTIVE SPIROMETER GIVEN, INSTRUCTIONS PROVIDED ON HOW TO USE. MIDLINE ON LEFT UPPER ARM #18G, INTACT AND PATENT, LEFT FOR CONTINUATION OF IV ANTIBIOTICS AT HOME WITH HOME HEALTH, NO S/SX OF INFECTION ON SITE. EXIT CARE FOLDER GIVEN TO PATIENT, DISCHARGE INSTRUCTIONS PROVIDED WITH VERBALIZATION OF UNDERSTANDING. 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 CN AWARE OF DISCHARGE.
== END 2022-06-22 12:08 | disposition home health service (06) | DRG 871 ==
LOC: ER 18:35 → TELE1 22:34
PROVIDERS: ADMIT Internal Medicine; ATTEND Internal Medicine
PROC: 05HC33Z Insertion of Infusion Device into Left Basilic Vein, Percutaneous Approach (ICD-10-PCS; principal; 2022-06-20)
DX: A41.9 Sepsis, unspecified organism (principal); I50.33 Acute on chronic diastolic (congestive) heart failure; J15.0 Pneumonia due to Klebsiella pneumoniae; N17.0 Acute kidney failure with tubular necrosis; E44.1 Mild protein-calorie malnutrition; R17 Unspecified jaundice; R65.20 Severe sepsis without septic shock; E87.6 Hypokalemia; K76.89 Other specified diseases of liver; E03.9 Hypothyroidism, unspecified; E78.5 Hyperlipidemia, unspecified; E86.0 Dehydration; E88.09 Other disorders of plasma-protein metabolism, not elsewhere classified; I70.0 Atherosclerosis of aorta; I11.0 Hypertensive heart disease with heart failure; K21.9 Gastro-esophageal reflux disease without esophagitis; N28.1 Cyst of kidney, acquired; R09.02 Hypoxemia; Z68.31 Body mass index [BMI] 31.0-31.9, adult; Z79.82 Long term (current) use of aspirin; E66.9 Obesity, unspecified; M19.90 Unspecified osteoarthritis, unspecified site; Z79.899 Other long term (current) drug therapy; Z20.822 Contact with and (suspected) exposure to COVID-19
CPT/HCPCS: 36410; 36415; 71045-TC; 71250-TC; 76700-TC; 76770-TC; 80048-TC; 80053-TC; 80202-TC; 81001; 82962-TC; 83735-TC; 83880; 84100-TC; 84439-TC; 84443-TC; 84481; 84484-TC; 85025-TC; 86788; 86789; 87040-TC; 87081-TC; 87086-TC; 93307-TC; 94799-TC; 97112-TC; 97116-TC; 97530-TC; A4223; C9803; G0378; J0456; J0692; J0696; J1650; J2270; J2405; J3370; J3480; J7030; J7040; J7050; J7060